=== PATIENT | male | born 1970 | race Caucasian/White ===

== ENCOUNTER 2017-06-11 22:52 | Observation (INO) | payer OTHER ==
[2017-06-11] MEDS ORDERED: SODIUM CHLORIDE 0.9% FLUSH 10 ML FLUSH IV FLUSH PRN (23:00)
[2017-06-12] VITALS (8 sets, daily range): BP systolic 112–129; BP diastolic 64–89; PULSE 50–68; RESP 18–20; TEMP 96.3–98.5; O2SAT 95–99
[2017-06-12] MEDS: RESP: ALBUTEROL 2.5 MG/3 ML NEB (PRN) NEB ×2 (01:42→12:24)
[2017-06-12 07:53] LABS: AUTOMATED NEUTROPHIL # 7.9 TH/MM3 (1.8-7.7); BASOPHIL % 0.1 % (0.0-2.0); EOSINOPHIL % 0.1 % (0.0-4.0); HEMATOCRIT 40.5 % (39.0-51.0); HEMOGLOBIN 13.7 GM/DL (13.0-17.0); LYMPH % 16.3 % (9.0-44.0); LYMPHOCYTE # 1.7 TH/MM3 (1.0-4.8); MEAN CELL VOLUME 88.7 FL (80.0-100.0); MEAN CORPUSCULAR HGB CONC 33.8 % (32.0-36.0); MEAN PLATELET VOLUME 7.7 FL (7.0-11.0); MONO % 10.4 % (0.0-8.0); MONOCYTE # 1.1 TH/MM3 (0-0.9); NEUT % 73.1 % (16.0-70.0); PLATELET COUNT 273 TH/MM3 (150-450); RED BLOOD COUNT 4.57 MIL/MM3 (4.50-5.90); RED CELL DISTRIBUTION WIDTH 12.6 % (11.6-17.2); WHITE BLOOD COUNT 10.7 TH/MM3 (4.0-11.0)
[2017-06-12 07:58] LABS: BICARBONATE 27.3 MEQ/L (21.0-32.0); CALCIUM 8.6 MG/DL (8.5-10.1)
[2017-06-12 08:02] LABS: CREATININE 0.87 MG/DL (0.60-1.30)
[2017-06-12] MEDS ORDERED: HEPARIN SODIUM - SQ 10,000 UNITS/ML VIAL SQ SCH (09:00)
[2017-06-12] MEDS: SODIUM CHLORIDE 0.9% FLUSH 10 ML FLUSH IV FLUSH SCH ×2 (09:52→23:16)
--- NOTE | 2017-06-12 10:20 | HHI.HP ---
HPI Service [facility] Primary Care Physician No Primary Care Physician Admission Diagnosis Diagnoses: Travel History International Travel<30 Days: No Contact w/Intl Traveler <30 Da: No Traveled to Known Affected Are: No History of Present Illness has been short of breath for one week but slowly gettign worse in 2 days went to [place] on then came back on monday were taking prednisone at home did not help no fever was coughign, no sputum was requring nebs almost every 2 hours has hx of asthma started at age 26 yo when he was in [place], when it is cold, adn was diagnosed in ER never seen a lung doctor triggered by cold weather while in [place], once every 2-3 yrs, was in ER in [place], works as [employer], and has symptoms once a year, since 2012, usually winter time lumbar wood no other symptoms Review of Systems Except as stated in HPI: all other systems reviewed are Neg Past Family Social History Past Medical History asthma Past Surgical History none Allergies: Coded Allergies: No Known Allergies (Unverified , 06/10/17) Family History sister and mom- dm brother- dm Social History a pack a day smoking, quit about 1 yr ago, started smoking at around age 21yo social drinker only once in a while used to use heroine, quit a year or so Physical Exam Vital Signs Vital Signs Date Time Temp Pulse Resp B/P (MAP) Pulse Ox O2 Delivery O2 Flow Rate FiO2 06/12/17 08:02 97 21 06/12/17 08:00 97.2 50 18 114/80 (91) 99 06/12/17 04:00 96.3 59 20 114/64 (81) 95 06/12/17 01:42 95 21 06/12/17 01:18 95 Room Air 06/12/17 01:00 96.9 68 20 112/74 (87) 95 Physical Exam GENERAL: This is a well-nourished, well-developed patient, in no apparent distress. noted to be coughing constantly, but able to complete sentences SKIN: No rashes, ecchymoses or lesions. Cool and dry. HEAD: Atraumatic. Normocephalic. No temporal or scalp tenderness. EYES: . No scleral icterus. No injection or drainage. ENT: Nose without bleeding, purulent drainage or septal hematoma. Airway patent. NECK: Trachea midline. No JVD . Supple, nontender, no meningeal signs. CARDIOVASCULAR: Regular rate and rhythm without murmurs, gallops, or rubs. RESPIRATORY: bilateral inspiratory and expiratory wheezing all throughout GASTROINTESTINAL: Abdomen soft, non-tender, nondistended. No guarding. MUSCULOSKELETAL: Extremities without clubbing, cyanosis, or edema. No calf tenderness. NEUROLOGICAL: Awake and alert. Motor and sensory grossly within normal limits. Normal speech. Laboratory Laboratory Tests Test 06/12/17 07:40 White Blood Count 10.7 Red Blood Count 4.57 Hemoglobin 13.7 Hematocrit 40.5 Mean Corpuscular Volume 88.7 Mean Corpuscular Hemoglobin 30.0 Mean Corpuscular Hemoglobin Concent 33.8 Red Cell Distribution Width 12.6 Platelet Count 273 Mean Platelet Volume 7.7 Neutrophils (%) (Auto) 73.1 Lymphocytes (%) (Auto) 16.3 Monocytes (%) (Auto) 10.4 Eosinophils (%) (Auto) 0.1 Basophils (%) (Auto) 0.1 Neutrophils # (Auto) 7.9 Lymphocytes # (Auto) 1.7 Monocytes # (Auto) 1.1 Eosinophils # (Auto) 0.0 Basophils # (Auto) 0.0 CBC Comment DIFF FINAL Differential Comment Blood Urea Nitrogen 16 Creatinine 0.87 Random Glucose 92 Calcium Level 8.6 Sodium Level 140 Potassium Level 4.2 Chloride Level 106 Carbon Dioxide Level 27.3 Anion Gap 7 Estimat Glomerular Filtration Rate 95 Result Diagram: 06/12/17 0740 06/12/17 0740 Caprini VTE Risk Assessment Caprini Risk Assessment Model Point Value = 1 Point Value = 2 Point Value = 3 Point Value = 5 Age 41-60 Minor surgery BMI > 25 kg/m2 Swollen legs Varicose veins or History of unexplained or recurrent spontaneous Oral contraceptives or hormone replacement Sepsis (< 1 month) Serious lung disease, including pneumonia (< 1 month) Abnormal pulmonary function Acute myocardial infarction Congestive heart failure (< 1 month) History of inflammatory bowel disease Medical patient at bed rest Age 61-74 Arthroscopic surgery Major open surgery (> 45 min) Laparoscopic surgery (> 45 min) Malignancy Confined to bed (> 72 hours) Immobilizing plaster cast Central venous access Age >= 75 History of VTE Family history of VTE Factor V Leiden Prothrombin [id number] Lupus anticoagulant Anticardiolipin antibodies Elevated serum homocysteine Heparin-induced thrombocytopenia Other congenital or acquired thrombophilia Stroke (< 1 month) Elective arthroplasty Hip, pelvis, or leg fracture Acute spinal cord injury (< 1 month) Prophylaxis Regimen Total Risk Factor Score Risk Level Prophylaxis Regimen 0-1 Low Early ambulation 2 Moderate Order ONE of the following: *Sequential Compression Device (SCD) *Heparin 5000 units SQ BID 3-4 Higher Order ONE of the following medications: *Heparin 5000 units SQ TID *Enoxaparin/Lovenox 40 mg SQ daily (WT < 150 kg, CrCl > 30 mL/min) *Enoxaparin/Lovenox 30 mg SQ daily (WT < 150 kg, CrCl > 10-29 mL/min) *Enoxaparin/Lovenox 30 mg SQ BID (WT < 150 kg, CrCl > 30 mL/min) AND/OR *Sequential Compression Device (SCD) 5 or more Highest Order ONE of the following medications: *Heparin 5000 units SQ TID (Preferred with Epidurals) *Enoxaparin/Lovenox 40 mg SQ daily (WT < 150 kg, CrCl > 30 mL/min) *Enoxaparin/Lovenox 30 mg SQ daily (WT < 150 kg, CrCl > 10-29 mL/min) *Enoxaparin/Lovenox 30 mg SQ BID (WT < 150 kg, CrCl > 30 mL/min) AND *Sequential Compression Device (SCD) Assessment and Plan Assessment and Plan asthma exacerbation - likely due to running out of inhaled steroids suspects underlying copd as well failed outpatient treatment with steroids and inhalors possible occupation related lung disease hx of tobacco abuse - quit 1 yr ago iv steroids nebs prn start budesonide MDI scheduled had tried singulair prior without much improvement per patient pulm consult for differential diagnosis/ pft studies dvt prophylaxis with scd gi prophylaxis with pantoprazole Karma Mohan MD Jun 12, 2017 10:20
[2017-06-12] MEDS: methylPREDNISolone SOD SUCC 40 MG/1 ML VIAL IV PUSH SCH ×3 (12:00→23:16)
[2017-06-12] MEDS: BUDESONIDE-FORMOTEROL 160/4.5 MCG INHALER INH SCH ×2 (14:31→23:15)
[2017-06-12] MEDS: RESP: ALBUTEROL 2.5 MG/IPRATROPIUM 0.5 MG NEB (SCH) NEB (20:00)
[2017-06-12] MEDS ORDERED: BUDESONIDE-FORMOTEROL 160/4.5 MCG INHALER INH SCH (21:00)
[2017-06-13] VITALS: BP 109/72; PULSE 58; RESP 16; TEMP 98.1; O2SAT 93
[2017-06-13 04:00] VITALS: BP 109/72; PULSE 58; RESP 16; TEMP 98.1; O2SAT 93
[2017-06-13] MEDS: methylPREDNISolone SOD SUCC 40 MG/1 ML VIAL IV PUSH SCH ×2 (06:06→10:58)
[2017-06-13] MEDS: RESP: ALBUTEROL 2.5 MG/IPRATROPIUM 0.5 MG NEB (SCH) NEB (07:57)
[2017-06-13 07:58] VITALS: O2SAT 93
--- NOTE | 2017-06-13 08:47 | MB ---
cc: Adrian Ash MD DATE OF CONSULT: REASON FOR CONSULTATION: Respiratory distress and asthma. HISTORY OF PRESENT ILLNESS: This is a 46-year-old white male who has had a history of asthma since a young ago, recently developed a respiratory infection with cough, chest congestion and wheezing. The patient states that he kept getting worse over a period of 1 week, and in spite of using the albuterol inhaler, he could not catch his breath and had severe tightness in his chest and wheezing and thus was seen in the emergency room and subsequently admitted. Chest x-ray was done upon admission, which showed no active infiltrates. His CBC and labs were okay, and the patient was placed on oxygen and started on IV steroids and subsequently admitted. He is coughing but does not bring up much sputum. Denies any night sweats, fevers or chills and no hemoptysis. PAST HISTORY: Includes history of recurrent bronchitis and asthma. No history of surgery. He has had some postnasal drip and sinus disease. HABITS: The patient smoked a pack per day for about 20 years and quit a year ago. Alcohol use occasional. ALLERGIES: NONE LISTED. FAMILY HISTORY: No family history of asthma that he knows of. SYSTEM REVIEW: The patient denies weight loss. He has some postnasal drip, nasal congestion. There is chest tightness and mild wheezing and his epigastric assessment, reflux. No urinary symptoms. No leg or calf muscle pain. He has some joint pains of his extremities and no skin lesions. PHYSICAL EXAMINATION: This middle-aged white male is alert, in no acute distress. He has no pallor, cyanosis. No clubbing or peripheral edema. Blood pressure 138/70, pulse 62, respirations 22, temperature 98.2. HEENT: Head normocephalic. Pupils reactive and equal. Tongue is moist. Nasal mucosa erythematous. Throat is injected. NECK: Supple, no bruits or thyroid enlargement. No lymphadenopathy. CHEST: Distant breath sounds with expiratory wheezes throughout both lung [place], prolonged expirations, no crackles. HEART: Sounds were regular, S1 and S2, no murmur, no S3. ABDOMEN: Soft, protuberant, no mass, no organomegaly or tenderness. Bowel sounds active. EXTREMITIES: No lesions, no edema. Normal reflexes. There were no gross motor deficits. CRANIAL NERVES: Intact. RECTAL: Exam is deferred. IMPRESSION: 1. Asthmatic bronchitis. 2. Allergic rhinitis. PLAN: The patient will be started on DuoNeb solution with a nebulizer q.i.d., Symbicort inhaler 160/4.5 mcg 2 puffs b.i.d., was placed on Zithromax 500 mg once daily for 5 days, Solu-Medrol 40 mg IV q.6 hours and taper to prednisone in the next 24-48 hours. Pulmonary function study to be done at the bedside and he was also placed on Singulair 10 mg once a day. He was also advised that he needs to stay on his steroid and use only the albuterol as a rescue inhaler. Thank you, Dr. Mohan, for this consultation. V. Marek Ash MD VJD/NOMI , 11:16 PM , 08:45 AM
[2017-06-13 09:00] VITALS: BP 142/84; PULSE 53; RESP 18; TEMP 98.2; O2SAT 95
[2017-06-13] MEDS ORDERED: PANTOPRAZOLE SOD 40 MG DELAYED RELEASE TAB PO SCH (09:00)
[2017-06-13] MEDS ORDERED: AZITHROMYCIN 250 MG TAB PO SCH (09:00)
[2017-06-13] MEDS ORDERED: MONTELUKAST SODIUM 10 MG TAB PO SCH (09:00)
--- NOTE | 2017-06-13 09:57 | HHI.PR ---
Subjective Remarks Patient seen and examined today for follow-up on bronchospasm, shortness of breath. Patient states that he is doing much better. Patient very eager to go home. 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 Patient is clinically stable and significantly improved will plan discharge accordingly. Objective Vitals Vital Signs Date Time Temp Pulse Resp B/P (MAP) Pulse Ox O2 Delivery O2 Flow Rate FiO2 06/13/17 09:00 98.2 53 18 142/84 (103) 95 06/13/17 07:58 93 21 06/13/17 04:00 98.1 58 16 109/72 (84) 93 06/13/17 00:00 98.1 58 16 109/72 (84) 93 06/12/17 20:00 97.9 50 18 129/84 (99) 96 06/12/17 20:00 96 Room Air 06/12/17 20:00 95 21 06/12/17 16:52 98.1 63 18 116/82 (93) 96 06/12/17 12:18 97 Room Air 06/12/17 12:00 98.5 67 18 127/89 (102) 97 I/O 06/12/17 06/12/17 06/12/17 06/13/17 06/13/17 06/13/17 07:00 15:00 23:00 07:00 15:00 23:00 Intake Total 240 ml 740 ml 360 ml Output Total 1050 ml Balance 240 ml -310 ml 360 ml Intake Oral 240 ml 740 ml 360 ml Output Urine Total 1050 ml # Voids 1 # Bowel Movements 0 0 Result Diagram: 06/12/17 0740 06/12/17 0740 Objective Remarks GENERAL: Well-developed, well-nourished, in no acute distress. alert and orientated HEENT: Head is normocephalic without any lesions or masses noted. Facial features are symmetric. Eyes: Extraocular muscles are intact. Conjunctivae were clear. NECK: Supple without any masses. Trachea midline no deviation. No JVD, CARDIAC: Regular rhythm, regular rate. S1/S2 are heard. No murmurs gallops or rubs. LUNGS: Clear to auscultation bilaterally. No wheeze, rhonchi or rales. No use of accessory muscles on inspiration or expiration. ABDOMEN: Soft, nontender. Nondistended. Bowel sounds heard in all 4 quadrants. No organomegaly or masses. Negative rebound, negative guarding EXTREMITIES: No edema, pulses are equal bilaterally. No cyanosis or clubbing NEUROLOGY: Mood and affect appear appropriate. Cranial nerves II through XII grossly intact. Moving all extremities, speech is clear Urinary Catheter: No Vascular Central Line Catheter: No A/P Assessment and Plan Shortness of breath, bronchospasm, failed outpatient treatment Likely secondary to chronic obstructive pulmonary disease versus asthma Patient does have a rather significant smoking history, he did smoke over 20 years but did it one year ago. 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 Awaiting PFT DVT prevention Sequential compression devices GI protection Protonix secondary to steroid use Discharge Planning Patient eloped without official discharge Mohamud Sanchez Jun 13, 2017 09:57
[2017-06-13] MEDS: BUDESONIDE-FORMOTEROL 160/4.5 MCG INHALER INH SCH (11:00)
[2017-06-13] MEDS: SODIUM CHLORIDE 0.9% FLUSH 10 ML FLUSH IV FLUSH SCH (11:01)
[2017-06-13 13:24] VITALS: O2SAT 94
--- NOTE | 2017-06-13 13:28 | HHI.DCPOC ---
Discharge Care Plan Diagnosis: (1) COPD (chronic obstructive pulmonary disease) (2) Shortness of breath Goals to Promote Your Health * To prevent worsening of your condition and complications * To maintain your health at the optimal level Directions to Meet Your Goals Take your medications as prescribed Follow your dietary instruction Follow activity as directed Keep your appointments as scheduled Take your immunizations and boosters as scheduled If your symptoms worsen call your PCP, if no PCP go to Urgent Care Center or Emergency Room Smoking is Dangerous to Your Health. Avoid second hand smoke Call the 24-hour hour crisis hotline for domestic abuse at Mohamud Sanchez Jun 13, 2017 13:28
[2017-06-13] MEDS ORDERED: MEDR4PAK PO (13:31)
[2017-06-13] MEDS ORDERED: Budeson-Formot 160-4.5 Mcg Inh INH (13:31)
[2017-06-13] MEDS ORDERED: PANT40TA3 PO (13:31)
[2017-06-13] MEDS ORDERED: IPRAAER INH (13:31)
[2017-06-13] MEDS ORDERED: MONT10TA4 PO (13:31)
[2017-06-13] MEDS ORDERED: AZIT250T3 PO (13:31)
[2017-06-13] MEDS ORDERED: RESP: ALBUTEROL 2.5 MG/IPRATROPIUM 0.5 MG NEB (SCH) NEB (14:00)
== END 2017-06-13 15:22 | disposition left against medical advice (07) ==
LOC: PHEDDLT 06-12 00:52 → PH3A 06-12 01:02
PROVIDERS: ADMIT Hospitalist; ATTEND Hospitalist
DX: J44.9 Chronic obstructive pulmonary disease, unspecified (principal); R09.82 Postnasal drip; R06.02 Shortness of breath; Z87.891 Personal history of nicotine dependence; Z79.51 Long term (current) use of inhaled steroids
CPT/HCPCS: 80048; 82785; 85025; 94010; 94640; 94664; 96374; 96375; 96376; G0378; J2920; J7613

== ENCOUNTER 2018-02-26 18:58 | Observation (INO) ==
[2018-02-26] MEDS ORDERED: Bisacodyl 10 MG Supp RECTAL PRN (20:44)
[2018-02-26] MEDS ORDERED: Acetaminophen 325 MG Tablet PO PRN (20:44)
[2018-02-26] MEDS ORDERED: Naloxone Inj 0.4 MG/ML Vial IV.PUSH PRN (20:50)
[2018-02-27] MEDS: Sod Chloride 0.9% Inj 1,000 ML IV.CONT SCH ×4 (01:52→14:08)
[2018-02-27 08:27] LABS: Baso # (Auto) 0.1 th/mm3 (0.0-0.2); Baso % (Auto) 0.5 % (0.0-2.0); Eos # (Auto) 0.1 th/mm3 (0.0-0.4); Eos % (Auto) 0.9 % (0.0-4.0); Hematocrit 39.1 % (39.0-51.0); Hemoglobin 13.7 gm/dL (13.0-17.0); Lymph # (Auto) 1.7 th/mm3 (1.0-4.8); Lymph % (Auto) 10.1 % (9.0-44.0); Mean Corpuscular HGB Conc 35.1 % (32.0-36.0); Mean Corpuscular Hemoglobin 30.9 pg (27.0-34.0); Mean Corpuscular Volume 88.1 fL (80.0-100.0); Mean Platelet Volume 7.6 fL (7.0-11.0); Mono # (Auto) 1.2 th/mm3 (0.0-0.9); Mono % (Auto) 7.4 % (0.0-8.0); Neut # (Auto) 13.4 th/mm3 (1.8-7.7); Neut % (Auto) 81.1 % (16.0-70.0); Platelet Count 239 th/mm3 (150-450); Red Blood Count 4.44 mil/mm3 (4.50-5.90); Red Cell Distribution Width 12.9 % (11.6-17.2); White Blood Count 16.5 th/mm3 (4.0-11.0)
[2018-02-27 08:35] LABS: Chloride 106 meq/L (98-107); Potassium 3.7 meq/L (3.5-5.1); Sodium 140 meq/L (136-145)
[2018-02-27 08:38] LABS: Calcium 7.7 mg/dL (8.5-10.1)
[2018-02-27 08:39] LABS: Albumin 2.9 g/dL (3.4-5.0); Anion Gap 9 meq/L (5-15); Blood Urea Nitrogen 10 mg/dL (7-18); Carbon Dioxide 25.4 meq/L (21.0-32.0); Glucose,Random 88 mg/dL (74-106)
[2018-02-27 08:42] LABS: Alanine Aminotransferase 47 U/L (12-78); Aspartate Aminotransferase 27 U/L (15-37); Glomerular Filtration Rate Greater Than 89 mL/min (>89)
[2018-02-27 08:44] LABS: Total Protein 6.6 g/dL (6.4-8.2)
[2018-02-27 08:45] LABS: Alkaline Phosphatase 72 U/L (45-117)
--- NOTE | 2018-02-27 15:56 | P.HPIM ---
History of Present Illness Primary Care Physician: UNKNOWN History of Present Illness: This patient is a 47-year-old male with a history of heroin abuse he was brought into the emergency department and dropped off by his friend. The patient was noted to be apneic and in severe respiratory distress. The patient admits to using IV heroin yesterday and then became disoriented and was having difficulty breathing. The patient was ventilated with a bag valve mask and given Narcan with significant improvement of his symptoms. The patient was then placed in observation and has been in the hospital since yesterday. The patient denies any chest pain, no abdominal pain, no diarrhea, no fevers or chills. Past medical history none Past surgical history none Social history patient admits to on and off IV heroin use since his 20s. He also smokes tobacco occasionally has been ongoing over the past 10 years. Denies any history of alcohol use Family history noncontributory Review of Systems All other systems reviewed negative except as stated in HPI [facility] - History History Provided By: Patient - Medical History Medical History: Medical History (Last Reviewed 02/26/18 @ 19:05 by Tiffany Larry RN) Asthma - Surgical History Surgical History: Surgical History (Last Reviewed 02/26/18 @ 19:05 by Tiffany Larry RN) No history of previous surgery - Tobacco History Second Hand Smoke Exposure: No Tobacco Use In Past 30 Days: No Smoking Status: Former smoker Tobacco Type: Cigarettes, Smokeless Tobacco - Alcohol History How Often Do You Have a Drink Containing Alcohol: Monthly or less - Substance Use History Substance History: Active Abuse - Substance Use Type Other Type: heroine OD Status: Active Route Used: Intravenously Frequency: every 3 days Reason for Use: Increase Energy Level Comment: feel depressed if heroine is not use. Medications and Allergies Active Medications: Active Medications Acetaminophen (Tylenol) 650 mg PO Q4H PRN PRN Reason: Temp > 100.4 Bisacodyl (Dulcolax Supp) 10 mg RECTAL DAILY PRN PRN Reason: SEVERE CONSITIPATION Sodium Chloride (Ns Inj) 1,000 mls @ 125 mls/hr IV.CONT .Q8H [facility] Last Admin: 02/27/18 14:08 Dose: Not Given Naloxone HCl (Narcan Inj) 0.4 mg IV.PUSH Q2M PRN PRN Reason: supressed respirations Prochlorperazine Edisylate (Compazine Inj) 5 mg IV.PUSH Q4H PRN PRN Reason: NAUSEA OR VOMITING Sennosides (Senokot) 17.2 mg PO Q12H PRN PRN Reason: Moderate Constipation Allergies Allergy/AdvReac Type Severity Reaction Status Date / Time No Known Allergies Allergy Verified 02/26/18 19:03 Exam Vital signs: Vital Signs 02/27/18 01:00 02/27/18 02:30 02/27/18 04:00 Temperature 98.1 F 98.7 F Pulse Rate 87 91 H 99 H Respiratory Rate 18 18 Blood Pressure 127/62 99/56 L Pulse Oximetry 98 94 L 02/27/18 08:00 02/27/18 12:00 Temperature 98.8 F 97.7 F Pulse Rate 73 74 Respiratory Rate 19 19 Blood Pressure 102/66 107/58 L Pulse Oximetry 97 97 Intake & Output 02/26/18 02/27/18 02/27/18 18:59 06:59 18:59 Intake Total 200 / 200 1000 / 1000 Output Total 500 / 500 Balance 200 / 200 500 / 500 Weight 79.9 kg Intake: IV 1000 / 1000 NS Inj 1,000 ML @ 125 mls/hr IV 1000 / 1000 .CONT .Q8H [facility] Rx#:[id number] Oral 200 / 200 0 / 0 Output: Urine 500 / 500 Other: # Voids 2 Date of Last Bowel Movement 02/26/18 Weight On Admission 79.8 kg Narrative: General patient in no acute distress HEENT extraocular movements are intact, clear oropharyngeal mucosa, no JVD Cardiovascular S1-S2 audible, RRR, no murmurs rubs or gallops Respiratory clear to auscultation bilaterally Abdomen soft, nontender, nondistended, normal bowel sounds Extremities no edema 2+ distal pulses in bilateral upper and lower extremities Neuro cranial nerves II through XII intact Results - Labs CBC & Chem 7: 02/27/18 08:20 02/27/18 08:20 Labs: Short CBC 02/27/18 Range/Units 08:20 WBC 16.5 H (4.0-11.0) th/mm3 Hgb 13.7 (13.0-17.0) gm/dL Hct 39.1 (39.0-51.0) % Plt Count 239 D (150-450) th/mm3 BMP 02/27/18 08:20 Sodium 140 Potassium 3.7 Chloride 106 Carbon Dioxide 25.4 BUN 10 Creatinine 0.82 Calcium 7.7 L Liver Function 02/27/18 Range/Units 08:20 Total Bilirubin 1.1 H (0.2-1.0) mg/dL AST 27 (15-37) U/L ALT 47 (12-78) U/L Alkaline Phosphatase 72 (45-117) U/L Albumin 2.9 L (3.4-5.0) g/dL Caprini VTE Risk Assessment Caprini VTE Risk Assessment: No/Low Risk (score <= 1) Caprini Risk Assessment Model: Point Value = 1 Point Value = 2 Point Value = 3 Point Value = 5 Age 41-60 Minor surgery BMI > 25 kg/m2 Swollen legs Varicose veins or History of unexplained or recurrent spontaneous Oral contraceptives or hormone replacement Sepsis (< 1 month) Serious lung disease, including pneumonia (< 1 month) Abnormal pulmonary function Acute myocardial infarction Congestive heart failure (< 1 month) History of inflammatory bowel disease Medical patient at bed rest Age 61-74 Arthroscopic surgery Major open surgery (> 45 min) Laparoscopic surgery (> 45 min) Malignancy Confined to bed (> 72 hours) Immobilizing plaster cast Central venous access Age >= 75 History of VTE Family history of VTE Factor V Leiden Prothrombin [id number] Lupus anticoagulant Anticardiolipin antibodies Elevated serum homocysteine Heparin-induced thrombocytopenia Other congenital or acquired thrombophilia Stroke (< 1 month) Elective arthroplasty Hip, pelvis, or leg fracture Acute spinal cord injury (< 1 month) Prophylaxis Regimen: Total Risk Factor Score Risk Level Prophylaxis Regimen 0-1 Low Early ambulation 2 Moderate Order ONE of the following: *Sequential Compression Device (SCD) *Heparin 5000 units SQ BID 3-4 Higher Order ONE of the following medications: *Heparin 5000 units SQ TID *Enoxaparin/Lovenox 40 mg SQ daily (WT < 150 kg, CrCl > 30 mL/min) *Enoxaparin/Lovenox 30 mg SQ daily (WT < 150 kg, CrCl > 10-29 mL/min) *Enoxaparin/Lovenox 30 mg SQ BID (WT < 150 kg, CrCl > 30 mL/min) AND/OR *Sequential Compression Device (SCD) 5 or more Highest Order ONE of the following medications: *Heparin 5000 units SQ TID (Preferred with Epidurals) *Enoxaparin/Lovenox 40 mg SQ daily (WT < 150 kg, CrCl > 30 mL/min) *Enoxaparin/Lovenox 30 mg SQ daily (WT < 150 kg, CrCl > 10-29 mL/min) *Enoxaparin/Lovenox 30 mg SQ BID (WT < 150 kg, CrCl > 30 mL/min) AND *Sequential Compression Device (SCD) Assessment and Plan - Plan This patient is a 47-year-old male with a history of heroin abuse he was brought into the emergency department and dropped off by his friend. The patient was noted to be apneic and in severe respiratory distress. The patient admits to using IV heroin yesterday and then became disoriented and was having difficulty breathing. The patient was ventilated with a bag valve mask and given Narcan with significant improvement of his symptoms. The patient was then placed in observation and has been in the hospital since yesterday. 1. Acute hypoxic respiratory failure secondary to heroin use. The patient presented apneic and was in severe respiratory distress. In the ER the patient was hypoxic and was immediately attended to and was ventilated with bag valve mask. He was subsequently given Narcan and the patient had significant improvement of his symptoms. A chest x-ray was done which does not show any infiltrates. Currently he was on supplemental oxygen, he was then admitted and monitored closely in the MedSurg unit. The patient symptoms significantly improved after Narcan was given. Patient was advised to avoid heroin. The patient says he has cut down significantly and does not want to use again after this experience. H&P: Quality - VTE Deep Vein Thrombosis/Pulmonary Embolism Present on Admission: No
--- NOTE | 2018-02-27 16:00 | P.DS ---
Date of admission: 02/27/18 01:00 Primary care physician: UNKNOWN Brief History from admission: This patient is a 47-year-old male with a history of heroin abuse he was brought into the emergency department and dropped off by his friend. The patient was noted to be apneic and in severe respiratory distress. The patient admits to using IV heroin yesterday and then became disoriented and was having difficulty breathing. The patient was ventilated with a bag valve mask and given Narcan with significant improvement of his symptoms. The patient was then placed in observation and has been in the hospital since yesterday. The patient denies any chest pain, no abdominal pain, no diarrhea, no fevers or chills. Past medical history none Past surgical history none Social history patient admits to on and off IV heroin use since his 20s. He also smokes tobacco occasionally has been ongoing over the past 10 years. Denies any history of alcohol use Family history noncontributory DS: Medications - Discharge Medications Prescriptions: albuterol sulfate 2 inh INHALATION Q4H PRN #1 inhaler PRN Reason: shortness of breath or wheezing DS: Summary Hospital Course: This patient is a 47-year-old male with a history of heroin abuse he was brought into the emergency department and dropped off by his friend. The patient was noted to be apneic and in severe respiratory distress. The patient admits to using IV heroin yesterday and then became disoriented and was having difficulty breathing. The patient was ventilated with a bag valve mask and given Narcan with significant improvement of his symptoms. The patient was then placed in observation and has been in the hospital since yesterday. 1. Acute hypoxic respiratory failure secondary to heroin use. The patient presented apneic and was in severe respiratory distress. In the ER the patient was hypoxic and was immediately attended to and was ventilated with bag valve mask. He was subsequently given Narcan and the patient had significant improvement of his symptoms. A chest x-ray was done which does not show any infiltrates. Currently he was on supplemental oxygen, he was then admitted and monitored closely in the MedSurg unit. The patient symptoms significantly improved after Narcan was given. Patient was advised to avoid heroin. The patient says he has cut down significantly and does not want to use again after this experience. The patient was advised to follow-up with the primary care doctor in the next 1- 2 weeks. Instructions were given to the patient of how to obtain a primary care doctor. 2. Tobacco abuse Patient was advised to quit smoking. Patient states he has cut down and does not want to smoke tobacco anymore. - Time Spent with Patient Total time spent providing and/or coordinating discharge services: Greater than 30 minutes - Quality: VTE Deep Vein Thrombosis/Pulmonary Embolism Present on Admission: No Exam Vital signs: Vital Signs 02/27/18 01:00 02/27/18 02:30 02/27/18 04:00 Temperature 98.1 F 98.7 F Pulse Rate 87 91 H 99 H Respiratory Rate 18 18 Blood Pressure 127/62 99/56 L Pulse Oximetry 98 94 L 02/27/18 08:00 02/27/18 12:00 02/27/18 12:05 Temperature 98.8 F 97.7 F Pulse Rate 73 74 70 Respiratory Rate 19 19 Blood Pressure 102/66 107/58 L Pulse Oximetry 97 97 Intake & Output 02/26/18 02/27/18 02/27/18 18:59 06:59 18:59 Intake Total 200 / 200 1000 / 1000 Output Total 500 / 500 Balance 200 / 200 500 / 500 Weight 79.9 kg Intake: IV 1000 / 1000 NS Inj 1,000 ML @ 125 mls/hr IV 1000 / 1000 .CONT .Q8H MARTA Rx#:[id number] Oral 200 / 200 0 / 0 Output: Urine 500 / 500 Other: # Voids 2 Date of Last Bowel Movement 02/26/18 Weight On Admission 79.8 kg Narrative: General patient in no acute distress HEENT extraocular movements are intact, clear oropharyngeal mucosa, no JVD Cardiovascular S1-S2 audible, RRR, no murmurs rubs or gallops Respiratory clear to auscultation bilaterally Abdomen soft, nontender, nondistended, normal bowel sounds Extremities no edema 2+ distal pulses in bilateral upper and lower extremities Neuro cranial nerves II through XII intact Results Procedures completed during hospitalization: None Labs on day of discharge: Labs from last 24 hours 02/27/18 02/27/18 08:20 08:20 CBC w Diff Slide review pending WBC 16.5 H RBC 4.44 L Hgb 13.7 Hct 39.1 MCV 88.1 D MCH 30.9 MCHC 35.1 RDW 12.9 Plt Count 239 D MPV 7.6 Neut % (Auto) 81.1 H Lymph % (Auto) 10.1 [place] % (Auto) 7.4 Eos % (Auto) 0.9 Baso % (Auto) 0.5 Neut # (Auto) 13.4 H Lymph # (Auto) 1.7 [place] # (Auto) 1.2 H Eos # (Auto) 0.1 Baso # (Auto) 0.1 WBC Differential . Diff Scan Auto diff confirmed Differential Comment . Sodium 140 Potassium 3.7 Chloride 106 Carbon Dioxide 25.4 Anion Gap 9 BUN 10 Creatinine 0.82 Estimated GFR Greater than 89 Random Glucose 88 D Calcium 7.7 L Total Bilirubin 1.1 H AST 27 ALT 47 Alkaline Phosphatase 72 Total Protein 6.6 D Albumin 2.9 L Discharge Plan - Discharge Disposition Patient Disposition: 01 Discharge Home - Discharge Condition Condition: Good - Discharge Order Discharge Orders: Discharge Order (Routine); Ordered 02/27/18 Ordered By: Cecelia Peña - Physicians Team Primary Care Provider: UNKNOWN, Attending Provider: Cecelia Peña - Rxs /Orders / Referrals /Forms Prescriptions: Continue albuterol sulfate 90 mcg/actuation HFA aerosol inhaler 2 inh INHALATION Q4H PRN (Reason: shortness of breath or wheezing) Qty: 1 RF: 0 Referrals: [facility] [Outside] - See Instructions UNKNOWN, [Primary Care Provider] - See Instructions - Discharge Instructions Additional Instructions: Follow-up with a primary care physician in the next 1-2 weeks. Instructions were given to the patient how to obtain a primary care doctor.
== END 2018-02-27 17:20 | disposition home or self-care (01) ==
LOC: PHEDDLT 02-27 00:50 → PH3 02-27 00:50
PROVIDERS: ADMIT Hospitalist; ATTEND Hospitalist